=== PATIENT | male | born 1950 | race Caucasian/White ===

== ENCOUNTER 2023-10-16 11:35 | Day surgery (SDC) | payer MEDICARE ==
[~2023-10-16] VITALS: Ht 180.3 cm; Wt 87.2 kg
[~2023-10-16 11:35] MED LIST: AMLO1TAB25 PO; ATROPINE SULFATE 1% OPHTH SOLN 2ML BTL OS SCH; CLON0.5T2 PO; ECOT81TA5 PO; FLURBIPROFEN 0.03% OPHTH SOLN 2.5 ML OS SCH; LR 1,000 ML IV SCH; OMEG10002 PO; PANT40TA29 PO; PHENYLEPHRINE 2.5% OPHTH SOL 2ML OS SCH; ROSU5TAB40 PO; TETRACAINE 0.5% OPHTH SOLN 4ML OS SCH
[2023-10-16] MEDS ORDERED: MIDAZOLAM INJ 2MG/2ML VIAL As Ordered ONE (14:49)
[2023-10-16] MEDS ORDERED: fentaNYL 100 MCG/2 ML INJECTION As Ordered ONE (14:49)
[2023-10-16] MEDS: CEFUROXIME 1MG/0.1ML INTRACAMERAL INJ As Ordered ONE (14:52)
[2023-10-16] MEDS: LIDOCAINE 1% SDV 5ML VIAL As Ordered ONE (14:52)
[2023-10-16 15:07] VITALS: BP 118/69; TEMP 98.7; O2SAT 95
== END 2023-10-16 15:38 | disposition home or self-care (01) ==
LOC: M SDC 11:35
PROVIDERS: ATTEND Ophthalmology
DX: H25.12 Age-related nuclear cataract, left eye (principal); I10 Essential (primary) hypertension; E78.00 Pure hypercholesterolemia, unspecified; Z79.899 Other long term (current) drug therapy; Z79.82 Long term (current) use of aspirin; Z85.01 Personal history of malignant neoplasm of esophagus; Z92.3 Personal history of irradiation; Z87.891 Personal history of nicotine dependence
CPT/HCPCS: 66984; J0697; J2250; J3010; V2632